=== PATIENT | male | born 1995 | race Caucasian/White ===

== ENCOUNTER 2016-07-10 18:46 | Emergency (ER) | payer MEDICAID ==
[~2016-07-10] VITALS: Ht 172.7 cm; Wt 102.0 kg
[~2016-07-10 18:46] MED LIST: AUGM875T PO; IBUP800T23 PO
[2016-07-10 18:49] VITALS: BP 183/106; PULSE 94; RESP 18; TEMP 97.9; O2SAT 98
== END 2016-07-10 20:34 | disposition left against medical advice (07) ==
LOC: NED 18:46
DX: Z53.21 Procedure and treatment not carried out due to patient leaving prior to being seen by health care provider (principal)
CPT/HCPCS: 99281

== ENCOUNTER 2016-10-02 20:41 | Emergency (ER) | payer SELFPAY ==
[~2016-10-02] VITALS: Ht 172.7 cm; Wt 115.5 kg
[2016-10-02 20:43] VITALS: BP 178/116; PULSE 92; RESP 18; TEMP 98; O2SAT 99
[2016-10-02] MEDS ORDERED: HYDR-4107 PO (20:48)
[2016-10-02] MEDS ORDERED: LISI40TA PO ×2 (20:48→21:26)
--- NOTE | 2016-10-02 21:01 | PD ---
HPI Chief Complaint: Injury Time Seen by Provider: 20:45 Travel History International Travel<30 days: No Contact w/Intl Traveler<30days: No Traveled to known affect area: No History of Present Illness HPI 21-year-old right-handed male presents to the emergency room for evaluation of right hand pain after injuring it last night. Patient was pushing down on a torque wrench to change a tire when it broke and he slammed his hand into the concrete with all of his weight. Patient reports immediate pain and swelling. He took left over Lortab this morning with minimal to moderate relief in symptoms. Pain is localized to the right third metacarpal with radiation into the palm and hand. Pain is 6/10, worse with range of motion. Patient denies paresthesias. PFSH Past Medical History Cardiovascular Problems: Yes (htn) Social History Tobacco Use: Yes Allergies-Medications (Allergen,Severity, Reaction): Coded Allergies: No Known Allergies (Unverified , 10/02/16) Reported Meds & Prescriptions Reported Meds & Active Scripts Active Ibuprofen 600 Mg Tab 600 Mg PO Q8HR PRN Reported Hydrocodone-Acetaminophen 5-300 Mg Tab 1 Tab PO Q4H PRN Lisinopril 40 Mg Tab 40 Mg PO DAILY Review of Systems Except as stated in HPI: all other systems reviewed are Neg Physical Exam Narrative GENERAL: Well-nourished, well-developed male in no acute distress. Afebrile. Ambulatory. SKIN: Focused skin assessment warm/dry. No erythema. Mild ecchymosis over the dorsal hand. HEAD: Normocephalic. EYES: No scleral icterus. No injection or drainage. NECK: Supple, trachea midline. No JVD or lymphadenopathy. CARDIOVASCULAR: Regular rate and rhythm without murmurs, gallops, or rubs. RESPIRATORY: Breath sounds equal bilaterally. No accessory muscle use. EXTREMITY: Right hand extremely tender to palpation over the dorsal third metacarpal. Limited range of motion secondary to pain. Less than 2 second capillary refill distally. Moderate to severe edema of the right dorsal hand. 2+ radial pulse. Data Data Last Documented VS Vital Signs Date Time Temp Pulse Resp B/P Pulse Ox O2 Delivery O2 Flow Rate FiO2 10/02/16 21:15 85 18 193/113 98 Room Air 10/02/16 20:43 98.0 Orders Hand, Complete ([id number]) (10/02/16 ) Acetamin-Hydrocod 325-5 Mg ([place] 5-325 (10/02/16 21:30) MDM Medical Decision Making Medical Screen Exam Complete: Yes Emergency Medical Condition: Yes Medical Record Reviewed: Yes Differential Diagnosis fracture, sprain, strain Narrative Course 21 year-old right-handed male presents to the emergency room for evaluation of right hand pain, swelling after injuring it last night. Patient accidentally slammed his hand into the ground with all of his weight. Physical exam reveals moderate edema and mild ecchymosis of the right hand. It is neurovascularly intact with less than 2 second capillary refill distally. Limited range of motion secondary to pain. There is extreme tenderness to palpation of the third metacarpal. Ice was applied. X-ray shows no acute bony abnormality. Of note, patient has incidental hypertension. He normally takes lisinopril 40 mg daily but has been out of his medication for 3 days. He was given Lortab in the emergency room and discharged with refill of lisinopril and prescription for ibuprofen. Told to follow up with a primary care physician or return for worsening symptoms. He understands and agrees to plan. Diagnosis Primary Impression: Contusion of right hand Qualified Code: S60.221A - Contusion of right hand, initial encounter Referrals: Primary Care Physician Patient Instructions: Contusion in Adults (ED), General Instructions, Hypertension (ED) Additional Instructions: Rest and drink plenty of fluids. Take ibuprofen with food as directed, as needed for pain. Elevate and apply ice to the affected area for 20 minutes at a time, as needed for pain and swelling. Follow-up with a primary care physician. Return to the emergency room for worsening symptoms. Med/Other Pt SpecificInfo: Prescription(s) given Scripts Lisinopril 40 Mg Tab40 Mg PO DAILY #30 TAB Ref 0 Prov:Derrick Eric MD 10/02/16 Ibuprofen 600 Mg [id number] Mg PO Q8HR PRN (PAIN) #21 TAB Ref 0 Prov:Derrick Eric MD 10/02/16 Disposition: 01 DISCHARGE HOME Condition: Stable Miriam Renteria Oct 02, 2016 21:01
[2016-10-02 21:15] VITALS: BP 193/113; PULSE 85; RESP 18; O2SAT 98
[2016-10-02] MEDS ORDERED: IBUP-232 PO (21:24)
--- NOTE | 2016-10-02 21:25 | PD ---
Data Data Last Documented VS Vital Signs Date Time Temp Pulse Resp B/P Pulse Ox O2 Delivery O2 Flow Rate FiO2 10/02/16 22:49 88 18 182/111 98 Room Air 10/02/16 20:43 98.0 Orders Hand, Complete ([id number]) (10/02/16 ) Acetamin-Hydrocod 325-5 Mg ([place] 5-325 (10/02/16 21:30) Clonidine (Catapres) (10/02/16 22:15) MDM Supervised Visit with SAADIA: Yes Narrative Course I, Dr. Eric, have reviewed the advance practice practitioner's documentation and am in agreement, met with the patient face to face, made the diagnosis, and the medical decision making was done by me. *My assessment and Findings: Patient has some soft tissue swelling of the dorsum of his hand after blunt trauma. No convincing evidence of compartment syndrome, I reviewed the x-rays show no evidence of fracture. Think is stable for discharge home for symptomatic management. Diagnosis Primary Impression: Contusion of right hand Qualified Code: S60.221A - Contusion of right hand, initial encounter Scripts Lisinopril 40 Mg Tab40 Mg PO DAILY #30 TAB Ref 0 Prov:Derrick Eric MD 10/02/16 Ibuprofen 600 Mg [id number] Mg PO Q8HR PRN (PAIN) #21 TAB Ref 0 Prov:Derrick Eric MD 10/02/16 Disposition: 01 DISCHARGE HOME Condition: Stable Derrick Eric MD Oct 02, 2016 21:24
[2016-10-02] MEDS ORDERED: ACETAMINOPHEN/HYDROcodone 325 MG/5 MG TAB PO ONE (21:30)
--- NOTE | 2016-10-02 21:44 | RADHPO ---
EXAM DATE/TIME: 10/02/2016 20:55 [facility] COMPARISON: No previous studies available for comparison. INDICATIONS : Right hand pain and swelling. MEDICAL HISTORY : Injured hand last night when changing a car tire. Hand hit the concrete and currently has pain in thi rd metacarpal. SURGICAL HISTORY : None. ENCOUNTER: Initial ACUITY: 2 days PAIN SCORE: 6/10 LOCATION: Right hand. FINDINGS: Three views the right hand demonstrate no fracture or dislocation. Mineralization is within normal li mits and there is no significant arthropathy. No radiopaque foreign body is identified. There is soft tissue swelling of the posterior aspect of the hand. CONCLUSION: Posterior and soft tissue swelling. No fracture is identified. Sean Yeager MD on October 02, 2016 at 21:16 Board Certified Radiologist. This report was verified electronically.
[2016-10-02 22:02] VITALS: BP 187/99; PULSE 86; RESP 17; O2SAT 98
[2016-10-02] MEDS ORDERED: cloNIDine HCL 0.1 MG TAB PO ONE (22:15)
[2016-10-02 22:49] VITALS: BP 182/111; PULSE 88; RESP 18; O2SAT 98
== END 2016-10-02 22:51 | disposition home or self-care (01) ==
LOC: PHEFT 20:41
DX: S60.221A Contusion of right hand, initial encounter (principal); I10 Essential (primary) hypertension; Z72.0 Tobacco use; W22.09XA Striking against other stationary object, initial encounter; Y93.89 Activity, other specified; Y92.9 Unspecified place or not applicable; Y99.8 Other external cause status
CPT/HCPCS: 73130; 99283

== ENCOUNTER 2016-10-07 22:23 | Emergency (ER) | payer SELFPAY ==
[~2016-10-07] VITALS: Ht 172.7 cm; Wt 115.3 kg
[~2016-10-07 22:23] MED LIST changes: +HYDR-4107 PO; +IBUP-232 PO; +LISI40TA PO
[2016-10-07 22:54] VITALS: PULSE 58; RESP 18; TEMP 97.7; O2SAT 99
[2016-10-07 23:07] VITALS: BP 180/85; PULSE 60
[2016-10-07] MEDS ORDERED: ASPI1TAB93 (23:12)
[2016-10-07] MEDS ORDERED: SODIUM CHLOR 0.9% 1000 ML INJ 1,000 ML IV SCH (23:30)
[2016-10-07] MEDS ORDERED: PROCHLORPERAZINE INJ 10 MG/2 ML VIAL IV PUSH ONE (23:30)
[2016-10-07] MEDS ORDERED: diphenhydrAMINE HCL 50 MG/ML VIAL IV PUSH ONE (23:30)
[2016-10-07 23:52] LABS: AUTOMATED NEUTROPHIL # 7.6 TH/MM3 (1.8-7.7); BASOPHIL # 0.1 TH/MM3 (0-0.2); BASOPHIL % 1.2 % (0.0-2.0); EOSINOPHIL # 0.3 TH/MM3 (0-0.4); EOSINOPHIL % 2.4 % (0.0-4.0); HEMATOCRIT 46.5 % (39.0-51.0); LYMPH % 21.5 % (9.0-44.0); LYMPHOCYTE # 2.3 TH/MM3 (1.0-4.8); MEAN CELL VOLUME 87.6 FL (80.0-100.0); MEAN CORPUSCULAR HGB CONC 34.3 % (32.0-36.0); MONO % 5.1 % (0.0-8.0); NEUT % 69.8 % (16.0-70.0); PLATELET COUNT 188 TH/MM3 (150-450); RED BLOOD COUNT 5.31 MIL/MM3 (4.50-5.90); RED CELL DISTRIBUTION WIDTH 13.6 % (11.6-17.2); WHITE BLOOD COUNT 10.9 TH/MM3 (4.0-11.0)
[2016-10-08] LABS: HEMO FLAGS DIFF FINAL
[2016-10-08 00:01] LABS: CHLORIDE 110 MEQ/L (98-107); SODIUM (NA) 144 MEQ/L (136-145)
[2016-10-08 00:05] LABS: ANION GAP 8 MEQ/L (5-15); BICARBONATE 26.5 MEQ/L (21.0-32.0); BLOOD UREA NITROGEN 22 MG/DL (7-18)
[2016-10-08 00:08] LABS: ALT (GPT) 30 U/L (12-78); AST (GOT) 17 U/L (15-37); GLOMERULAR FILTRATION RATE 68 ML/MIN (>89)
[2016-10-08 00:09] LABS: TOTAL BILIRUBIN ADULT 0.3 MG/DL (0.2-1.0)
[2016-10-08 00:11] VITALS: BP 183/94; PULSE 59; RESP 17; O2SAT 97
[2016-10-08 00:11] LABS: ALKALINE PHOSPHATASE 108 U/L (45-117)
[2016-10-08] MEDS ORDERED: cloNIDine HCL 0.1 MG TAB PO ONE (00:30)
[2016-10-08 00:31] LABS: APTT (PATIENT) 26.2 SEC (24.3-30.1); PROTHROMBIN TIME - PATIENT 10.7 SEC (9.8-11.6)
--- NOTE | 2016-10-08 00:48 | RADRPT ---
EXAM DATE/TIME: 10/07/2016 23:44 [facility] COMPARISON: No previous studies available for comparison. INDICATIONS : Headaches. RADIATION DOSE: 64.67 CTDIvol (mGy) MEDICAL HISTORY : Hypertension. SURGICAL HISTORY : None. Skull injury with metal plates ENCOUNTER: Initial ACUITY: 1 day PAIN SCALE: 9/10 LOCATION: cranial TECHNIQUE: Multiple contiguous axial images were obtained of the head. Using automated exposure control and adj ustment of the mA and/or kV according to patient size, radiation dose was kept as low as reasonably a chievable to obtain optimal diagnostic quality images. DICOM format image data is available electro nically for review and comparison. FINDINGS: CEREBRUM: The ventricles are normal for age. No evidence of midline shift, mass lesion, hemorrhage or acute in farction. No extra-axial fluid collections are seen. POSTERIOR FOSSA: The cerebellum and brainstem are intact. The 4th ventricle is midline. The cerebellopontine angle i s unremarkable. EXTRACRANIAL: The visualized portion of the orbits is intact. SKULL: The calvaria is intact. No evidence of skull fracture. CONCLUSION: Normal examination. Jose Rivera MD on October 08, 2016 at 0:46 Board Certified Radiologist. This report was verified electronically.
--- NOTE | 2016-10-08 01:11 | PD ---
HPI Chief Complaint: Hypertension Time Seen by Provider: 23:21 Travel History International Travel<30 days: No Contact w/Intl Traveler<30days: No Traveled to known affect area: No History of Present Illness HPI This is a 21-year-old male presents to the emergency department complaining of severe headache. He states he woke up this morning with a really bad headache. It's been severe and constant all day. Describes bitemporal headache with photosensitivity. His a history of significant head injury and the past but has not had headaches that he can recall. He otherwise has been feeling generally well. He has no nausea or vomiting. He has no numbness tingling or weakness. He denies any neck pain or stiffness. He did have an unusual episode a sharp back pain that started in his low back that radiated up his back but is now gone. He has no other back pain or meningismus. He states when he tries to look is a little trouble seeing and focusing but otherwise denies any vision changes. Is a history of hypertension. He also had a DVT in his left leg and completed 6 months of Xarelto but has since stopped that. 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 No other complaints. History Past Medical History Narrative Medical Hypertension History of DVT Tetanus Vaccination: < 5 Years Social History Alcohol Use: Yes (occ) Tobacco Use: Yes (1 PPD) Allergies-Medications (Allergen,Severity, Reaction): Coded Allergies: No Known Allergies (Unverified , 10/07/16) Reported Meds & Prescriptions Reported Meds & Active Scripts Active Lisinopril 40 Mg Tab 40 Mg PO DAILY Ibuprofen 600 Mg Tab 600 Mg PO Q8HR PRN Reported Excedrin Extra Strength ([id number]-Qpwugply) 1 Tab Tab Review of Systems Except as stated in HPI: all other systems reviewed are Neg Physical Exam Narrative GENERAL: Is a well-appearing 21-year-old man, appears uncomfortable, nontoxic. His has a pillowcase on his face to shield his eyes from the light. SKIN: Focused skin assessment warm/dry. HEAD: Atraumatic. Normocephalic. EYES: Pupils equal and round. No scleral icterus. No injection or drainage. ENT: No nasal bleeding or discharge. Mucous membranes pink and moist. NECK: Trachea midline. No meningismus. CARDIOVASCULAR: Regular rate and rhythm. No murmur appreciated. RESPIRATORY: No accessory muscle use. Clear to auscultation. Breath sounds equal bilaterally. GASTROINTESTINAL: Abdomen soft, non-tender, nondistended. Hepatic and splenic margins not palpable. MUSCULOSKELETAL: No obvious deformities. No clubbing. No cyanosis. No edema. NEUROLOGICAL: Awake and alert. 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 He describes symmetric decreased sensation and tingling in his face throughout V1 through V3 on both sides. EOMs are full and intact. Strength is full and equal upper and lower extremities. Normal finger nose. Normal [id number]. PSYCHIATRIC: Appropriate mood and affect; insight and judgment normal. Data Data Last Documented VS Vital Signs Date Time Temp Pulse Resp B/P Pulse Ox O2 Delivery O2 Flow Rate FiO2 10/08/16 00:11 59 17 183/94 97 Room Air 10/07/16 22:54 97.7 Orders Complete Blood Count With Diff (10/07/16 23:21) Comprehensive Metabolic Panel (10/07/16 23:21) Act Partial Throm Time (Ptt) (10/07/16 23:21) Prothrombin Time / Inr (Pt) (10/07/16 23:21) Ct Brain W/O Iv Contrast(Rout) (10/07/16 ) Prochlorperazine Inj (Compazine Inj) (10/07/16 23:30) Diphenhydramine Inj (Benadryl Inj) (10/07/16 23:30) Sodium Chlor 0.9% 1000 Ml Inj (Ns 1000 M (10/07/16 23:30) Clonidine (Catapres) (10/08/16 00:30) Labs Laboratory Tests Test 10/07/16 23:40 White Blood Count 10.9 TH/MM3 Red Blood Count 5.31 MIL/MM3 Hemoglobin 15.9 GM/DL Hematocrit 46.5 % Mean Corpuscular Volume 87.6 FL Mean Corpuscular Hemoglobin 30.0 PG Mean Corpuscular Hemoglobin 34.3 % Concent Red Cell Distribution Width 13.6 % Platelet Count 188 TH/MM3 Mean Platelet Volume 8.3 FL Neutrophils (%) (Auto) 69.8 % Lymphocytes (%) (Auto) 21.5 % Monocytes (%) (Auto) 5.1 % Eosinophils (%) (Auto) 2.4 % Basophils (%) (Auto) 1.2 % Neutrophils # (Auto) 7.6 TH/MM3 Lymphocytes # (Auto) 2.3 TH/MM3 Monocytes # (Auto) 0.6 TH/MM3 Eosinophils # (Auto) 0.3 TH/MM3 Basophils # (Auto) 0.1 TH/MM3 CBC Comment DIFF FINAL Differential Comment Prothrombin Time 10.7 SEC Prothromb Time International 1.0 RATIO Ratio Activated Partial 26.2 SEC Thromboplast Time Sodium Level 144 MEQ/L Potassium Level 4.0 MEQ/L Chloride Level 110 MEQ/L Carbon Dioxide Level 26.5 MEQ/L Anion Gap 8 MEQ/L Blood Urea Nitrogen 22 MG/DL Creatinine 1.30 MG/DL Estimat Glomerular Filtration 68 ML/MIN Rate Random Glucose 98 MG/DL Calcium Level 8.7 MG/DL Total Bilirubin 0.3 MG/DL Aspartate Amino Transf 17 U/L (AST/SGOT) Alanine Aminotransferase 30 U/L (ALT/SGPT) Alkaline Phosphatase 108 U/L Total Protein 6.4 GM/DL Albumin 3.8 GM/DL [facility] Medical Decision Making Medical Screen Exam Complete: Yes Emergency Medical Condition: Yes Interpretation(s) Labs are unremarkable CT heads unremarkable Differential Diagnosis Posttraumatic headache, SAH, hydrocephalus, dural vein thrombosis, other Narrative Course Medical decision making This is a 18 through man, presents ED with severe headache lasting throughout the day. There is no thunderclap onset. He woke up with the headache. Suspect this is related to his previous trauma. He has not seen a doctor for headaches recently. Some concern for SAH. I think dural vein thrombosis seems much less likely however he did have a DVT recently that could suggest a thrombophilia. After his initial evaluation, he was feeling much improved. I spoke to him about LP to evaluate for SAH. He initially was agreeable but then realized how long he would have to stay to get these results and then declined. We discussed specifically my risk for bleeding that could be severe catastrophic. He states that he has severe headache persists in the morning he will return. Diagnosis Primary Impression: Headache Additional Instructions: Drink plenty of fluids and stay well-hydrated. Continue your current medications. Follow-up with your primary doctor on Sunday for not feeling completely well. Return to the emergency department for any persistent severe headaches, or any other new or worsening symptoms. Med/Other Pt SpecificInfo: No Change to Meds Disposition: DISCHARGE HOME Condition: Stable Noel Vargas MD Oct 08, 2016 01:11
== END 2016-10-08 01:22 | disposition home or self-care (01) ==
LOC: PHED 22:23
DX: R51 Headache (principal); G51.0 Bell's palsy; I10 Essential (primary) hypertension; Z86.718 Personal history of other venous thrombosis and embolism
CPT/HCPCS: 70450; 80053; 85025; 85610; 85730; 96361; 96374; 96375; 99285; J0780; J1200; J7030